=== PATIENT | female | born 1955 | race Two or more races ===

== ENCOUNTER 2017-03-06 07:13 | Outpatient (CLI) | payer OTHER ==
[2017-03-06] MEDS ORDERED: GADOBUTROL 10 ML VIAL IVP ONE (07:43)
[2017-03-06] MEDS ORDERED: FLUMAZENIL 0.5 MG/5 ML MDV IVP ONE (08:28)
[2017-03-06] MEDS ORDERED: fentaNYL 100 MCG/2 ML INJ ONE (08:29)
[2017-03-06] MEDS ORDERED: MIDAZOLAM 2 MG/2 ML VIAL ONE (08:29)
[2017-03-06] MEDS ORDERED: ONDANSETRON 4 MG/2 ML VIAL ONE (08:29)
[2017-03-06] MEDS ORDERED: NALOXONE HCL 0.4 MG/ML INJ ONE (08:29)
[2017-03-06] MEDS ORDERED: NS 1,000 ML IV SCH (08:45)
== END 2017-03-06 11:30 | disposition home or self-care (01) ==
LOC: FIMAGING 07:13
PROVIDERS: ATTEND Physician Assistant Surgical
DX: G20 Parkinson's disease (principal)
CPT/HCPCS: A9585; J2250; J2310; J2405; J3010

== ENCOUNTER 2017-03-12 05:46 | Inpatient (IN) | payer OTHER ==
--- NOTE | 2017-03-07 17:21 | GHP ---
[f rep st] HISTORY AND PHYSICAL DATE OF ADMISSION: 03/12/2017 HISTORY OF PRESENT ILLNESS: The patient is a 61-year-old female with tremor- predominant Parkinson disease. She has a right greater than left-sided tremor, rigidity, and slowness. She sees Dr. Roberson for neurology. Her symptoms began in 2004 with tremor in the right hand. The tremor then progressed to the left. She has bradykinesia and rigidity. She states she occasionally freezes and experiences fenestration and balance disturbances. She has undergone on- off testing and has undergone a neuropsych evaluation that revealed mild cognitive deficits. She presents today to proceed with surgical intervention with deep brain stimulation. PAST MEDICAL HISTORY: Parkinson disease. PAST SURGICAL HISTORY: Denies. SOCIAL HISTORY: Patient denies tobacco and alcohol use. FAMILY HISTORY: Noncontributory. REVIEW OF SYSTEMS: Patient denies chest pain, shortness of breath, abdominal pain, nausea, vomiting, fevers, or chills. Admits to tremors and bradykinesia. Admits to speech difficulties. ALLERGIES: No known drug allergies. CURRENT MEDICATIONS: Vitamin B6, carbidopa-levodopa. PHYSICAL EXAM: GENERAL: Patient was seen and examined. There appears to be no apparent distress. Mood and affect are appropriate, alert and oriented. VITAL SIGNS: Stable. NEUROLOGIC: Extraocular movements are intact. Facial expression is symmetrical. Tongue is midline with protrusion. Hearing is grossly intact. Speech is without dysarthria. Muscle strength is well preserved in upper and lower extremities with 5/5 and sensation is intact to light touch. ASSESSMENT AND PLAN: In summary, the patient is a 61-year-old female with Parkinson disease. She has been elected an excellent candidate for deep brain stimulation. She has undergone on-off testing with a decrease in new PDR score from 65 to 50. We would typically like to see a 30% drop. However, she is tremor predominant and refractory. She has also completed a neuropsychiatric evaluation. We recommend proceeding with bilateral deep brain stimulator lead placement in a staged fashion. The risks, benefits, and procedure were discussed in detail with the patient. The patient has elected and proceeded to move forward with surgery. Consents were signed and all questions and concerns were addressed and answered. We will first proceed with implant of left deep brain stimulator lead to the STN followed by right deep brain stimulator lead placement 1 month later. /[id number]/MODL MTDD
[2017-03-12] MEDS ORDERED: CEFUROXIME 1,500 MG in NS 50 ML IV ONE (06:00)
[2017-03-12] MEDS ORDERED: LIDOCAINE 1% 2 ML INJ ID PRN (06:27)
[2017-03-12] MEDS ORDERED: LR 1,000 ML IV ONE (06:27)
[2017-03-12] MEDS ORDERED: LIDOCAINE 1% 2 ML INJ ONE (06:34)
--- NOTE | 2017-03-12 06:55 | PDHPUP ---
History & Physical Update H&P update statement: This history and physical update is based on an assessment of the patient which was completed after admission or registration (within 24 hours), but prior to the surgery/procedure. H&P update: H&P reviewed & patient examined, no change in patient's condition since H&P completed
[2017-03-12 06:56] LABS: % IMMATURE GRANULYOCYTES 0.2 % (0.0-1.1); ABSOLUTE IMMATURE GRANULOCYTES 0.01 10^3/uL (0.00-0.10); ADD DIFF? NO; ADD MORPH? NO; ADD SCAN? NO; ATYPICAL LYMPHOCYTE FLAG 0 (0-99); FRAGMENT RBC FLAG 0 (0-99); HEMATOCRIT 41.2 % (38.0-47.0); HEMOGLOBIN 13.8 g/dL (12.6-16.3); LEFT SHIFT FLG 10 (0-99); LIPEMIA HEMOLYSIS FLAG 80 (0-99); MEAN CELL HEMOGLOBIN 31.4 pg (27.9-34.1); MEAN CELL HEMOGLOBIN CONCENTR. 33.5 g/dL (32.4-36.7); MEAN CELL VOLUME 93.8 fL (81.5-99.8); PLATELET CLUMPS FLAG 0 (0-99); PLATELET COUNT 174 10^3/uL (150-400); RED BLOOD CELL COUNT 4.39 10^6/uL (4.18-5.33); RED CELL DISTRIBUTION WIDTH 12.4 % (11.5-15.2)
[2017-03-12] MEDS ORDERED: THROMBIN (BOVINE) 20,000 UNIT VIAL TP ONE (06:56)
[2017-03-12] MEDS ORDERED: GENTAMICIN SULFATE 80 MG/2 ML VIAL ONE (06:56)
[2017-03-12] MEDS ORDERED: BUPIVACAINE/EPI 0.5% 30 ML SDV ONE ×2 (06:56→07:44)
[2017-03-12] MEDS ORDERED: POVIDONE-IODINE 30 GM OINTTUBE TP ONE (06:57)
--- NOTE | 2017-03-12 07:00 | PDANEPAE ---
ANE History of Present Illness 61 year old female with Parkinsons presents for DBS electrode placement. ANE Past Medical History - Cardiovascular History Hx Hypertension: No Hx Arrhythmias: No Hx Chest Pain: No Hx Coronary Artery / Peripheral Vascular Disease: No Hx CHF / Valvular Disease: No Hx Palpitations: No - Pulmonary History Hx COPD: No Hx Asthma/Reactive Airway Disease: No Hx Recent Upper Respiratory Infection: No Hx Oxygen in Use at Home: No Hx Sleep Apnea: No Sleep Apnea Screening Result - Last Documented: Negative - Neurologic History Hx Cerebrovascular Accident: No Hx Seizures: No Hx Dementia: No Neurologic History Comment: Parkinson's - Endocrine History Hx Diabetes: No Hypothyroid: Yes Hyperthyroid: No Obesity: no Endocrine History Comment: Hypothyroid - Renal History Hx Renal Disorders: No - Liver History Hx Hepatic Disorders: No - Neurological & Psychiatric Hx Hx Neurological and Psychiatric Disorders: Yes Neurological / Psychiatric History Comment: Parkinson's disease - Cancer History Hx Cancer: No - Congenital Disorder History Hx Congenital Disorders: No - GI History GERD: no Hx Gastrointestinal Disorders: No - Chronic Pain History Chronic Pain: No - Surgical History Prior Surgeries: None ANE Review of Systems Review of Systems: - Exercise capacity Exercise capacity: >=4 METS METS (RN): 4 METS ANE Patient History - Allergies Allergies/Adverse Reactions: No Known Allergies Allergy (Unverified 02/06/17 11:54) - Home Medications Home medications: home medication list seen and reviewed Home Medications: Ascorbic Acid [Vitamin C 500 mg (*)] 500 mg PO DAILY 02/06/17 [Last Taken 2 Weeks Ago ~02/26/17] Carbidopa/Levo Cr 50/200Mg [SINEMET CR 50/200 MG (*)] 1 tab PO BID@ [Last Taken 03/11/17 20:00] Carbidopa/Levodopa 25/100Mg [Sinemet 25/100 MG (*)] 1 tab PO TID@,, [Last Taken 03/11/17 18:00] Cholecalciferol Vit D3 [Vitamin D3 2000 units tab (OTC)] 2,000 units PO DAILY [Last Taken 2 Weeks Ago ~02/26/17] Levothyroxine [Synthroid 88 mcg (*)] 88 mcg PO DAILY06 02/06/17 [Last Taken 06:00] RX: Herbals/Supplements -Info Only 1 ea PO DAILY 02/06/17 [Last Taken 2 Weeks Ago ~02/26/17] Vitamin B Complex [B Complex] 1 each PO DAILY 02/06/17 [Last Taken 2 Weeks Ago ~ 02/26/17] - NPO status NPO Status: no food or drink >8 hours NPO Since - Liquids (Date): 03/11/17 NPO Since - Liquids (Time): 22:30 NPO Since - Solids (Date): 03/11/17 NPO Since - Solids (Time): 20:30 - Anes Hx Anes Hx: no prior problems - Smoking Hx Smoking Status: Never smoked Marijuana use: No - Alcohol Use Alcohol Use: None - Family Anes Hx Family Anes Hx: neg - N/A Family Hx Anesthesia Complications: None ANE Labs/Vital Signs - Labs Result Diagrams: 03/12/17 06:00 03/12/17 06:00 - Vital Signs Blood Pressure: 145/68 Heart Rate: 78 Respiratory Rate: 20 O2 Sat (%): 95 Height: 152.4 cm Weight: 63.503 kg ANE Physical Exam - Airway Neck exam: FROM Mallampati Score: Class 3 - Pulmonary Pulmonary: no respiratory distress - Cardiovascular Cardiovascular: regular rate and rhythym - ASA Status ASA Status: III
[2017-03-12] MEDS ORDERED: PROPOFOL/EMULSION 500 MG/50 ML BOTTLE IV ONE (07:05)
[2017-03-12 07:10] LABS: INR 1.05 (0.83-1.16); PROTIME(PATIENT) 13.6 SEC (12.0-15.0)
[2017-03-12 07:11] LABS: APTT 27.6 SEC (23.0-38.0)
[2017-03-12] MEDS ORDERED: hydrALAZINE 20 MG/ML VIAL ONE (07:11)
[2017-03-12] MEDS ORDERED: DEXAMETHASONE 4 MG/ML VIAL ONE (07:11)
[2017-03-12] MEDS ORDERED: LIDOCAINE 2% 5 ML SDV ONE (07:11)
[2017-03-12 07:12] LABS: ANION GAP 10 mEq/L (8-16); CARBON DIOXIDE 27 mEq/l (22-31); CHLORIDE 104 mEq/L (97-110); POTASSIUM 3.7 mEq/L (3.5-5.2); SODIUM 141 mEq/L (134-144)
[2017-03-12] MEDS ORDERED: DEXMEDETOMIDINE HCL 400 MCG in NS 100 ML IV ONE (07:30)
[2017-03-12] MEDS ORDERED: CHLORHEXIDINE GLUC HIBICLENS 118 ML BTL TP ONE (07:41)
[2017-03-12] MEDS ORDERED: PROPOFOL 200 MG/20 ML VIAL ONE (07:45)
[2017-03-12] MEDS ORDERED: LIDOCAINE 1% 300 MG/30 ML SDV ONE (07:46)
[2017-03-12] MEDS ORDERED: LR 500 ML IV PRN (09:44)
[2017-03-12] MEDS ORDERED: NALOXONE HCL 0.4 MG/ML INJ IVP PRN (09:44)
[2017-03-12] MEDS ORDERED: ONDANSETRON 4 MG/2 ML VIAL IVP PRN (09:44)
[2017-03-12] MEDS ORDERED: fentaNYL 100 MCG/2 ML INJ IVP PRN (09:44)
[2017-03-12] MEDS ORDERED: epHEDrine SULFATE 10 MG/ML SYR ONE (10:40)
[2017-03-12] MEDS ORDERED: ONDANSETRON 4 MG/2 ML VIAL ONE (10:40)
[2017-03-12] MEDS ORDERED: hydrALAZINE 20 MG/ML VIAL IVP PRN ×2 (10:58→11:11)
[2017-03-12] MEDS ORDERED: POLYETHYLENE GLYCOL 3350 17 GM PKT PO PRN (11:07)
[2017-03-12] MEDS ORDERED: LACTULOSE 20 GM/30 ML UDCUP PO PRN (11:07)
[2017-03-12] MEDS ORDERED: HYDROCODONE/APAP 10/325 TAB PO PRN (11:07)
[2017-03-12] MEDS ORDERED: MAGNESIUM HYDROXIDE 30 ML UDCUP PO PRN (11:07)
[2017-03-12] MEDS ORDERED: BISACODYL 10 MG SUPP PR PRN (11:07)
--- NOTE | 2017-03-12 11:07 | GOP ---
[f rep st] OPERATIVE REPORT DATE OF OPERATION: 03/12/2017 SURGEON: Caitlyn Jones DO NEUROSURGEON: Caitlyn Jones DO. AUTOMOBILE DESIGNER: None. PREOPERATIVE DIAGNOSIS: Parkinson disease. POSTOPERATIVE DIAGNOSIS: Parkinson disease. PROCEDURE PERFORMED: 1. Left deep brain stimulator lead placement with Medtronic [id number] lead to the left subthalamic nucleu s. 2. Stealth stereotaxis. 3. Impedances. FINDINGS: SPECIMENS: None. ESTIMATED BLOOD LOSS: 30 mL. INDICATIONS: This is a 61-year-old female with idiopathic Parkinson disease, who was evaluated by a multidisciplinary team and found to be a good candidate for staged bilateral STN DBS. She was identi fied and consented, sites were marked, and was brought to the operating room. Anesthetized under loc al. Hair was clipped with the OR clippers. Head was cleansed with ChloraPrep, and the Stealth stere otactic frame sites were anesthetized with 0.5% Marcaine with 1% lidocaine mixed. The pins had povid one iodine ointment, and the stereotactic frame was placed. A stereotactic spin with the O-arm 2 was performed and merged with the preoperative plan in the Stealth frame linked software. The AC/PC dis tance was 24.37, the axis is -11.22, Y of -1.79, Z of -5.05. Entry was an X of -41.77, Y of 32.31, a nd Z of 65.25. This corresponded to 23.5 degrees off midsagittal and 64.1 degrees off midaxial. Thi s corresponded to [place] frame coordinates of an X of 110, a Y of 102.5, a Z of 117, a ring of 75.5 degrees, and an arc of 109.4 degrees. She was prepped and draped in the usual sterile fashion. These [place] coordinates were all set and triple-checked by all providers in the room. Incision site was marked using the frame coordinates an d the cannula. A Half-arroyo incision was anesthetized with 0.5% Marcaine mixed with 1% lidocaine in a 50/50 mixture. A 10 blade was used to create an incision. Periosteum was elevated with periosteal elevator, and Jovan clips were placed. The bone incision was marked using a cannula. A corporate pilot hole w as drilled, and then a 14 mm bur hole was drilled. The dura was coagulated. The bone edges were wax ed. The Stimloc device was placed and locked down with 5 mm screws. The clipping mechanism verified the clip had been locked. The dura was opened with an 11 blade, and then we introduced the cannula and stylet, locked them into place, and plugged the hole with Gelfoam and DuraSeal. Removed the inte rnal stylette, placed a microelectrode, and connected. Performed microelectrode recordings. Please refer to Rani Fabian's dictation for all STACEY. However, we got approximately 6.5 mm of STN. Macr o stimulation was excellent with tremor cessation at the middle of the lead, 3 above target, with com plete cessation of tremor at 2 volts with no side effects. We elected to leave the lead here with th e bottom of the bottom contact at target. The lead was measured and marked. The target was selected and driven to. The microelectrode was removed. The lead was placed and we tested all 4 contacts. We had excellent control, low-to-no side effects through every single contact. Elected to leave the lead here. Took an x-ray with Garth sites, then removed the Gel-Foam and Dura Seal. Copiously irrigat ed. Retracted the cannula, placed the clipping mechanism, clipped and locked, verified the mechanism had locked, marked the lead, brought the stylet out of the lead, brought the lead down and out, and placed it into the groove. Placed the Stimloc cap over the lead. Took another x-ray and verified it had not migrated. Placed the boot over the lead, placed extension over the lead, protecting each co ntact. Used the torque wrench to lock it down and placed the boot over the lead extension complex, a nd tied into position with 2-0 silk ties at 2 positions. Tunneled posteriorly with periosteal elevat or. Anesthetized the stab incision with 0.5% Marcaine with epinephrine. Tunneled posterior to anter ior, brought the lead extension down and out, cutting it at the skin. Coiled the lead posterior and around the incision. Copiously irrigated with over a liter of gentamicin-infused saline. Closed the galea with 2-0 Vicryl pop-offs. Skin was closed with 3-0 running nylon. Frame was removed. Xerofo rm and Telfa were stapled down. Head frame was placed. The stereotactic spin that was performed aft er lead placement showed remarkable accuracy with zero deviation to plan. Patient tolerated procedur e well, no complications. DESCRIPTION OF PROCEDURE: STACEY: Rani Fabian PA-C. Please refer to her dictation for all STACEY data. FLUIDS: 1 L. URINE OUTPUT: 50 mL. DRAINS: None. COMPLICATIONS: None. /[id number]/MODL
--- NOTE | 2017-03-12 11:14 | POSTOPPROG ---
Post Op Note Date of Operation: 03/12/17 Surgeon: Caitlyn Jones Account Management Specialist: Rani Fabian PA-C Anesthesiologist: Juan Jose Hughes Anesthesia: IV Sedation Pre-op Diagnosis: Parkinson's Post-op Diagnosis: Parkinson's Procedure: Left STN DBS lead placement Inf/Abcess present in the surg proc area at time of surgery?: No Depth: Deep Incisional (Fascial) EBL: Minimal Plan Plan: 61 yo female s/p left STN DBS lead placement - neuro checks - postop head CT pending - maintain SBP < 140 - pain control - PT/OT - likely dc home tomorrow Exam Awake. Alert. PERRL. EOMI Following commands Strength full
[2017-03-12] MEDS: CARBIDOPA/LEVODOPA 25 MG/100 MG TAB PO SCH ×3 (11:22→17:15)
--- NOTE | 2017-03-12 12:02 | GPN ---
[f rep st] PROCEDURE NOTE DATE OF PROCEDURE: 03/12/2017 PREOPERATIVE DIAGNOSIS: Parkinson's disease. POSTOPERATIVE DIAGNOSIS: Parkinson's disease. PROCEDURE PERFORMED: Intraoperative functional subcortical mapping by microelectrode recording and s timulation. COMPLICATIONS: None. INDICATIONS FOR PROCEDURE: Determination of optimal electrode lead placement for deep brain stimulat ion therapy for Parkinson's disease to the STN. PROCEDURE: Following the incision, a fran hole was drilled on the left side. The arc was then arran ged with the following coordinates of X 110, Y 102.5, Z 117, ring 75.5, arc 109.4. The recording mark roelectrode was then slowly advanced into the brain using a central track. Cell bursts were noted ab ove target. There was evidence of entering STN at 6.5 above target and a tremor cell at 6.0 above ta rget. There was change in recordings with passive range of motion with elbow extension and shoulder at 5.0 above target. We exited STN at 0.3 below target. We then proceeded with macro stimulation due to the excellent microelectrode recordings that we obtai nelson. With macro stimulation, there was tremor improvement at 2.0 and no side effects up to 4.0. We then elected to place the lead with the bottom of the lead at target. With test stimulation at 0- , the patient had resolution of her tremor at 2.0 and transient tingling in her right hand at 3.5. A t 1-, the patient had improved bradykinesia and tremor at 2.5. No side effects up to 3.5. At 2-, th e patient had tremor improvement with no side effects up to 3.5. At 3-, the patient had tremor impro vement with no side effects up to 3.5. We elected to leave the lead at this location with the bottom of the lead at target due to the record ings we obtained as well as the test stimulation. The patient tolerated the surgery well without com plication. /[id number]/MODL
--- NOTE | 2017-03-12 12:32 | POSTANESTH ---
Post Anesthetic Evaluation Cardiovascular Status: Normal, Stable, Similar to Pre-Op Cond Respiratory Status: Normal, Stable, Similar to Pre-op Cond. Level of Consciousness/Mental Status: Can Participate in Eval, Alert and Oriented Pain Control: Adequate, Prn Tx Ordered Nausea/Vomiting Control: Adequate, Prn Tx Ordered Complications Possibly Related to Anesthesia: None Noted
[2017-03-12] MEDS: ACETAMINOPHEN 325 MG TAB PO PRN ×2 (13:23→17:51)
[2017-03-12] MEDS: NS W/ 20 KCl/L 1,000 ML IV SCH ×2 (13:32→22:03)
[2017-03-12] MEDS ORDERED: ONDANSETRON DISINTEGRATING 4 MG TAB PO PRN (15:33)
[2017-03-12] MEDS: traMADol 50 MG TAB PO PRN ×2 (15:50→22:02)
[2017-03-12] MEDS: CEFUROXIME 1,500 MG in NS 50 ML IV SCH ×2 (15:51→23:53)
[2017-03-12] MEDS: CARBIDOPA/LEVO CR 50 MG/200 MG TAB PO SCH (20:25)
[2017-03-12] MEDS: SENNOSIDES/DOCUSATE SODIUM TAB PO SCH (21:42)
[2017-03-13] MEDS: ONDANSETRON 4 MG/2 ML VIAL IVP PRN ×2 (02:07→08:58)
[2017-03-13] MEDS: ACETAMINOPHEN 325 MG TAB PO PRN ×3 (02:33→18:23)
[2017-03-13] MEDS: LEVOTHYROXINE 88 MCG TAB PO SCH (05:09)
--- NOTE | 2017-03-13 07:19 | NEUSURGPN ---
Assessment/Plan: 61 yo female s/p left STN DBS lead placement POD#1 - neuro checks - postop head CT stable - maintain SBP < 140 - pain control - antiemetics PRN - dressing changed this AM - PT/OT - likely dc home today pending clinical course - D/w Dr Jones - Call NS with any questions or concerns Subjective: Pt resting in bed, c/o vomiting yesterday. Slept well overnight. Objective: AAOx3 NAD VSS Pupils equal MAEx4 Incision cdi sutures intact, new headwrap placed +LT Urinary Catheter in Place: No - Physician Discussed Patient with : Karen Neurosurgery Physical Exam - Vitals, I&O, Labs I and O 03/12/17 03/13/17 03/14/17 05:59 05:59 05:59 Intake Total 2790 Output Total 880 Balance 1910 Weight 63.503 kg Intake: Oral (ml) 740 IV Intake (ml) 1000 IV Infused (ml) 1050 Cefuroxime 1,500 mg In Ns 50 50 ml @ 200 mls/hr IV Q8H CAR Rx#:[id number] NS W/ 20 KCl/L 1,000 ml @ 1000 100 mls/hr IV CONT CAR Rx#:[id number] Output: Urine (ml) 850 Catheter 50 Toilet 800 Estimated Blood Loss (ml) 30 Other: Intake Quantity Yes Sufficient Number of Voids Toilet 1 2 Vital Signs Temp Pulse Resp BP Pulse Ox 36.6 C 68 16 125/76 H 90 L 03/13/17 04:00 03/13/17 04:00 03/13/17 04:00 03/13/17 04:00 03/13/17 04:00 Laboratory Results 03/12/17 06:00 03/12/17 06:00 ICD10 Worksheet Patient Problems: Problems Problem Status Onset Parkinson disease Acute - ICD10 Problem Qualifiers (1) Parkinson disease
[2017-03-13] MEDS: SENNOSIDES/DOCUSATE SODIUM TAB PO SCH ×2 (09:40→20:41)
[2017-03-13] MEDS: CARBIDOPA/LEVO CR 50 MG/200 MG TAB PO SCH ×2 (10:36→20:41)
[2017-03-13] MEDS: CARBIDOPA/LEVODOPA 25 MG/100 MG TAB PO SCH ×3 (12:50→18:18)
--- NOTE | 2017-03-13 15:34 | ASMTCMCOM ---
CM Note CM Note Notes: Met with pt to discuss DC needs. Pt stated she has no needs at DC. She will be staying with her dtr while pt's recovers from an infection. Date Signed: 03/13/2017 03:33 PM Electronically Signed By:Soila Brown LCSW
[2017-03-13] MEDS ORDERED: PROMETHAZINE HCL 25 MG/ML INJ IVP PRN (16:33)
[2017-03-13] MEDS ORDERED: NS W/ 20 KCl/L 1,000 ML IV SCH (16:45)
[2017-03-13] MEDS: NS W/ 20 KCl/L 1,000 ML IV SCH (20:47)
[2017-03-14] MEDS: LEVOTHYROXINE 88 MCG TAB PO SCH (05:15)
[2017-03-14 07:25] VITALS: BP 146/77; PULSE 74; RESP 16; TEMP 99.7; O2SAT 93
[2017-03-14] MEDS: SENNOSIDES/DOCUSATE SODIUM TAB PO SCH (08:31)
[2017-03-14] MEDS: CARBIDOPA/LEVO CR 50 MG/200 MG TAB PO SCH (08:31)
--- NOTE | 2017-03-14 08:46 | NEUSURGPN ---
Date of Surgery: 03/12/17 Post Op Day: 2 Assessment/Plan: 61 yo female s/p left DBS lead placement to the STN for PD - neuro stable - pain controlled - nausea improved - PT/OT - plan for home today Discussed with Dr. Jones. Subjective: Nausea improved this morning. Mild headache. Notices improvement in her chin and hand tremor. Objective: Awake. Alert. PERRL. EOMI Following commands Strength full at 5/5 Incision with dressing c/d/i - Physician Discussed Patient with : Karen Neurosurgery Physical Exam - Vitals, I&O, Labs I and O 03/13/17 03/14/17 03/15/17 05:59 05:59 05:59 Intake Total 2790 1350 Output Total 880 1650 Balance 1910 -300 Weight 63.503 kg Intake: Oral (ml) 740 1150 IV Intake (ml) 1000 IV Infused (ml) 1050 200 Cefuroxime 1,500 mg In Ns 50 50 ml @ 200 mls/hr IV Q8H CAR Rx#:[id number] NS W/ 20 KCl/L 1,000 ml @ 1000 200 100 mls/hr IV CONT CAR Rx#:[id number] Output: Urine (ml) 850 1150 Catheter 50 Toilet 800 1150 Estimated Blood Loss (ml) 30 Emesis (ml) 500 Other: Intake Quantity Yes Yes Sufficient Number of Voids Toilet 1 2 Number of Emesis 1 Occurrences Vital Signs Temp Pulse Resp BP Pulse Ox 37.6 C 74 16 146/77 H 93 03/14/17 07:25 03/14/17 07:25 03/14/17 07:25 03/14/17 07:25 03/14/17 07:25 Laboratory Results 03/12/17 06:00 03/12/17 06:00 ICD10 Worksheet Patient Problems: Problems Problem Status Onset Parkinson disease Acute
[2017-03-14] MEDS: CARBIDOPA/LEVODOPA 25 MG/100 MG TAB PO SCH (11:06)
--- NOTE | 2017-03-14 16:18 | ASDISCHSUM ---
Discharge Information Plan Status:Home with No Needs Medically Cleared to Leave: Discharge Date:03/14/2017 11:25 AM CM D/C Disposition:Home, Routine, Self-Care ADT D/C Disposition:Home, Routine, Self-Care Projected Discharge Date:03/14/2017 11:25 AM Transportation at D/C: Discharge Delay Reason: Follow-Up Date:03/14/2017 11:25 AM Discharge Slot: Final Diagnosis: Placement Information Patient Contact Information Contact Name:MARY Relationship:Daughter Address:[address] Home Phone: City:[facility] Phone: [facility]/Zip Code:[place] [address] Email: Financial Information Financial Class:HMO and PPO Plans Primary Plan Desc:[employer] Primary Plan Number:[id number] Secondary Plan Desc: Secondary Plan Number: Assessment Information [facility] CM Progress Note CM Note CM Note Notes: Met with pt to discuss DC needs. Pt stated she has no needs at DC. She will be staying with her dtr while pt's recovers from an infection. Date Signed: 03/13/2017 03:33 PM Electronically Signed By:Soila Brown LCSW [facility] CM Progress Note CM Note CM Note Notes: Pt medically stable for d/c, no CM d/c needs identified. Date Signed: 03/14/2017 04:17 PM Electronically Signed By:HUSSEIN Cisse Intervention Information
== END 2017-03-14 11:25 | disposition home or self-care (01) | DRG 27 ==
LOC: F3N 05:46
PROVIDERS: ADMIT Neurological Surgery; ATTEND Neurological Surgery
PROC: BW191ZZ Fluoroscopy of Head and Neck using Low Osmolar Contrast (ICD-10-PCS; 2017-03-12)
PROC: 00K03ZZ Map Brain, Percutaneous Approach (ICD-10-PCS; principal; 2017-03-12 07:15)
PROC: 4A10X4G Monitoring of Central Nervous Electrical Activity, Intraoperative, External Approach (ICD-10-PCS; principal; 2017-03-12 07:15)
PROC: 00H03MZ Insertion of Neurostimulator Lead into Brain, Percutaneous Approach (ICD-10-PCS; principal; 2017-03-12 07:15)
DX: G20 Parkinson's disease (principal); E03.9 Hypothyroidism, unspecified
CPT/HCPCS: 97116-GP; 97161-GP; 97166-GO; 97535-GO; C1713; J0360; J0697; J1100; J2405; J2550; J2704

== ENCOUNTER 2017-04-09 05:23 | Inpatient (IN) | payer OTHER ==
[2017-04-09] MEDS ORDERED: CEFUROXIME 1,500 MG in NS 50 ML IV ONE (06:00)
[2017-04-09] MEDS ORDERED: LR 1,000 ML IV ONE (06:19)
[2017-04-09] MEDS ORDERED: CHLORHEXIDINE GLUC HIBICLENS 118 ML BTL TP ONE (06:29)
[2017-04-09] MEDS ORDERED: BUPIVACAINE 0.25% 30 ML SDV ONE (06:29)
[2017-04-09] MEDS ORDERED: THROMBIN (BOVINE) 20,000 UNIT VIAL TP ONE (06:29)
[2017-04-09] MEDS ORDERED: LIDOCAINE 2% JELLY 20 ML (UROJECT) ONE (06:29)
[2017-04-09] MEDS ORDERED: GENTAMICIN SULFATE 80 MG/2 ML VIAL ONE (06:30)
[2017-04-09] MEDS ORDERED: fentaNYL 100 MCG/2 ML INJ ONE (06:40)
[2017-04-09] MEDS ORDERED: PROPOFOL/EMULSION 500 MG/50 ML BOTTLE IV ONE (06:40)
[2017-04-09] MEDS ORDERED: niCARdipine/NACL/200 ML BAG IV ONE (06:41)
[2017-04-09] MEDS ORDERED: DEXMEDETOMIDINE HCL 200 MCG/2 ML VIAL IV ONE (06:42)
--- NOTE | 2017-04-09 07:09 | PDANEPAE ---
ANE History of Present Illness parkinson disease ANE Past Medical History - Cardiovascular History Hx Hypertension: No Hx Arrhythmias: No Hx Chest Pain: No Hx Coronary Artery / Peripheral Vascular Disease: No Hx CHF / Valvular Disease: No Hx Palpitations: No - Pulmonary History Hx COPD: No Hx Asthma/Reactive Airway Disease: No Hx Recent Upper Respiratory Infection: No Hx Oxygen in Use at Home: No Hx Sleep Apnea: No Sleep Apnea Screening Result - Last Documented: Negative - Neurologic History Hx Cerebrovascular Accident: No Hx Seizures: No Hx Dementia: No Neurologic History Comment: Parkinson's - Endocrine History Hx Diabetes: No Hypothyroid: Yes Endocrine History Comment: Hypothyroid - Renal History Hx Renal Disorders: No - Liver History Hx Hepatic Disorders: No - Neurological & Psychiatric Hx Hx Neurological and Psychiatric Disorders: Yes Neurological / Psychiatric History Comment: Parkinson's disease - Cancer History Hx Cancer: No - Congenital Disorder History Hx Congenital Disorders: No - GI History Hx Gastrointestinal Disorders: No - Other Health History Other Health History: NONE - Chronic Pain History Chronic Pain: No - Surgical History Prior Surgeries: None ANE Review of Systems Review of Systems: - Exercise capacity METS (RN): 4 METS ANE Patient History - Allergies Allergies/Adverse Reactions: No Known Allergies Allergy (Unverified 02/06/17 11:54) - Home Medications Home Medications: RX: Carbidopa/Levo Cr 50/200Mg [SINEMET CR 50/200 MG (*)] 1 tab PO BID@ [Last Taken 03/11/17 20:00] RX: Carbidopa/Levodopa 25/100Mg [Sinemet 25/100 MG (*)] 1 tab PO BID@02/06 [Last Taken 03/11/17 18:00] RX: Levothyroxine [Synthroid 88 mcg (*)] 88 mcg PO DAILY06 02/06/17 [Last Taken 03/11/17 06:00] - NPO status NPO Since - Liquids (Date): 04/08/17 NPO Since - Liquids (Time): 20:00 NPO Since - Solids (Date): 04/08/17 NPO Since - Solids (Time): 20:00 - Smoking Hx Smoking Status: Never smoked - Family Anes Hx Family Hx Anesthesia Complications: None ANE Labs/Vital Signs - Vital Signs Blood Pressure: 150/86 Heart Rate: 79 Respiratory Rate: 14 O2 Sat (%): 95 Height: 152.4 cm Weight: 63.503 kg ANE Physical Exam - Airway Neck exam: FROM Mallampati Score: Class 2 Mouth exam: normal dental/mouth exam - Pulmonary Pulmonary: no respiratory distress - Cardiovascular Cardiovascular: regular rate and rhythym - ASA Status ASA Status: II ANE Anesthesia Plan Anesthesia Plan: MAC
[2017-04-09] MEDS ORDERED: VANCOMYCIN HCL/NORMAL SALINE 250 ML IV ONE ×2 (07:18→20:00)
[2017-04-09] MEDS ORDERED: PROMETHAZINE HCL 25 MG/ML INJ IVP PRN (09:23)
[2017-04-09] MEDS ORDERED: fentaNYL 100 MCG/2 ML INJ IVP PRN (09:23)
[2017-04-09] MEDS ORDERED: HYDROmorphONE/DILAUDID 1 MG/ML INJ IVP PRN (09:23)
[2017-04-09] MEDS ORDERED: NALOXONE HCL 0.4 MG/ML INJ IVP PRN (09:23)
[2017-04-09] MEDS ORDERED: ONDANSETRON 4 MG/2 ML VIAL IVP PRN ×2 (09:23→10:25)
[2017-04-09] MEDS ORDERED: BISACODYL 10 MG SUPP PR PRN (10:25)
[2017-04-09] MEDS ORDERED: MAGNESIUM HYDROXIDE 30 ML UDCUP PO PRN (10:25)
[2017-04-09] MEDS ORDERED: OXYCODONE/APAP 5/325 TAB PO PRN (10:25)
[2017-04-09] MEDS ORDERED: POLYETHYLENE GLYCOL 3350 17 GM PKT PO PRN (10:25)
[2017-04-09] MEDS ORDERED: LACTULOSE 20 GM/30 ML UDCUP PO PRN (10:25)
[2017-04-09] MEDS ORDERED: hydrALAZINE 20 MG/ML VIAL IVP PRN (10:28)
[2017-04-09] MEDS ORDERED: HYDROCODONE/APAP 5/325 TAB PO PRN (10:28)
[2017-04-09] MEDS ORDERED: VANCOMYCIN 1.5 GM in D5W 250 ML IV SCH (10:30)
[2017-04-09] MEDS ORDERED: NS W/ 20 KCl/L 1,000 ML IV SCH (10:30)
--- NOTE | 2017-04-09 10:30 | POSTANESTH ---
Post Anesthetic Evaluation Cardiovascular Status: Normal, Stable Respiratory Status: Normal, Stable Level of Consciousness/Mental Status: Can Participate in Eval Pain Control: Adequate, Prn Tx Ordered Nausea/Vomiting Control: Adequate, Prn Tx Ordered Complications Possibly Related to Anesthesia: None Noted
--- NOTE | 2017-04-09 10:33 | POSTOPPROG ---
Post Op Note Date of Operation: 04/09/17 Surgeon: Caitlyn Jones Textile Engineer: Rani Fabian PA-C Anesthesiologist: Dr. Wayne Anesthesia: IV Sedation Pre-op Diagnosis: Parkinson's Post-op Diagnosis: Parkinson's Procedure: Right STN DBS lead placement Inf/Abcess present in the surg proc area at time of surgery?: No Depth: Deep Incisional (Fascial) EBL: Minimal Plan Plan: 61 yo female s/p right STN DBS lead placement - neuro checks - pain control - postop CT head pending - maintain SBP < 140 - PT/OT - dispo: tomorrow if does well Exam Patient seen and examined in recovery. PERRL. EOMI Muscle strength full at 5/5 Sensation intact
--- NOTE | 2017-04-09 11:39 | GPN ---
[f rep st] PROCEDURE NOTE PREPROCEDURE DIAGNOSIS: Parkinson disease. POSTPROCEDURE DIAGNOSIS: Parkinson disease. PROCEDURE PERFORMED: Intraoperative functional subcortical mapping by microelectrode recording and s timulation. COMPLICATIONS: None. INDICATIONS FOR PROCEDURE: Determination of optimal electrode lead placement for deep brain stimulat ion therapy for Parkinson disease to STN. PROCEDURE: Following the incision, a fran hole was drilled on the right side. The arc was then arra nged with the following coordinates of X 91.5, Y 101, Z 118.5, ring 77, arc 65.3. The recording micr oelectrode was then slowly advanced into the brain using a central and lateral tract. Cell bursts we re noted above target on both tracts. There was evidence of entering STN on the lateral tract at 3.9 above target. There was change with recordings with elbow flexion at 3.0 above targets and at 2.0 a kandy target with elbow extension and flexion. We exited STN at 2.7 below target. With the central t ract, there was no evidence of entering STN and we entered SNR at 2.7 below target. With these micro electrode recordings at the lateral tract, we elected to proceed with macro stimulation. Patient had no side effects up to 4.0. We then elected to place the lead with the bottom of the lead at 2.7 below target using the lateral t rack. Patient did not have any tremor present for us to test this morning, and thus we tested for si de effects. At 0-, patient had transient tingling in her left hand starting at 2.5 through 3.5. No persistent tingling. At 1-, no side effects up to 3.5; 2-, no side effects up to 3.5; 3-, no side ef fects up to 3.5. We elected to leave the lead at this location with the bottom of the lead at 2.7 below target using t he lateral tract due to the recordings we obtained as well as the test stimulation. The patient hudson rated the surgery well without complications. /[id number]/MODL
--- NOTE | 2017-04-09 11:44 | GOP ---
[f rep st] OPERATIVE REPORT DATE OF OPERATION: 04/09/2017 SURGEON: Caitlyn Jones DO NEUROSURGEON: Caitlyn Jones DO CALL WORKER PERSON: DEE Posada PREOPERATIVE DIAGNOSIS: Parkinson disease. POSTOPERATIVE DIAGNOSIS: Parkinson disease. PROCEDURE PERFORMED: 1. Right deep brain stimulator lead placement to subthalamic nucleus. 2. Stealth stereotaxis. FINDINGS: SPECIMENS: None. ESTIMATED BLOOD LOSS: 15 mL. INDICATIONS: This is a 61-year-old female, who has a left-sided deep brain stimulator lead to the ST N nucleus. She had been previously evaluated by a multidisciplinary team, found to be a good silas te for bilateral deep brain stimulation to STN. She presents today for a second side lead. DESCRIPTION OF PROCEDURE: She was identified, consented. Sites were marked. Brought to the operati ng room. Anesthetized under local with MAC. Hair was clipped with the OR clippers. Head was cleans ed with ChloraPrep. The pin sites were anesthetized with 0.5% Marcaine with epinephrine, and using B etadine ointment on the pins, placed the stealth frame stereotactically. We then performed an O-arm 2 spin and registered to the preoperative plan. We mirrored the opposite side as she had excellent S TN placement, and the mirror once we did registration looked to be a bit lateral, so we planned based upon direct targeting for an X of 9.5, a Y of -1.59, a Z of -5.14, an entry point of an X of 41.62, a Y of 31.95, a Z of 65.4. This corresponded to 24.5 degrees off midsagittal, 64.6 degrees off midax ial. We elected to do 2 electrodes, 1 in the central and 1 in the original mirror, which was 2 mm la teral and the central frame coordinates were an X of 91.5, a Y of 101, a Z of 118.5, a ring of 77 deg marleny, an arc of 65.3 degrees. These were all set and triple checked by all providers in the room. Patient was prepped and draped in the usual sterile fashion. Incision was marked using [place] frame coordinates. Incision was anesthetized with 0.5% Marcaine with epinephrine. Half-arroyo incision was made and periosteal elevator was used to elevate the periosteum. Hemostasis was obtained with bipol ar cautery and Jovan clips. We marked the bone opening using [place] frame coordinates and cannula. Created a pilot submersible hole, then a 14 mm fran hole, waxed all fran hole edges, placed the Stimloc device, locked into place with 5 mm Synthes screws. Verified the clipping mechanism clipped and locked. Ope nelson the dura sharply with an 11 blade. Coagulated with an 11 blade. Gently inserted both cannulas a nd stylet, placed Gelfoam and DuraSeal, removed the stylet, placed a microelectrode, performed microe lectrode recording. Please refer to Rani Fabian for all microelectrode recording dictation; felix boyd, we got an excellent run of STN in that lateral tract with approximately 6 mm of STN with good le sional effect. No side effects. We elected to place the lead here and at approximately 2.7 below ta rget, which is the end of the STN and tested the lead at all 4 contacts. Good impedances were found at all 4 contacts and there were no side effects. She had such a significant lesional effect that we were unable to test for efficacy. We retracted the cannula, placed the clipping mechanism, clipped and locked it. Marked the lead, removed the stylet. Took an x-ray with site. Brought th e lead out, placed it into the groove, placed the cap on the Stimloc. Placed the boot over the lead. Performed a stereotactic spin verifying that we were in an appropriate position. Placed the boot o oliver the lead, placed the extension over the lead, protecting each contact. Used the torque wrench, l ocked into place. Brought the boot over the lead extension complex, tied in position with 2-0 silk t ies at 2 positions somewhat posteriorly with a periosteal elevator. Anesthetized the stab incision p osteriorly with 0.5% Marcaine with epinephrine. Tunneled posterior to anterior and brought the lead extension down and out. Coiled the lead around the incision, took a final x-ray, and all leads were in good position, had not migrated. Copiously irrigated with over a liter of gentamicin infused sali ne. Closed the galea with 2-0 Vicryl pop-offs. The skin was closed with 3-0 running nylon. The darius d was cut at the skin and nylon stitch was placed where the lead extension exited. The frame was rem lesa. Wound was dressed with Xeroform and Tegaderm. Head was wrapped, and the patient tolerated proc edure well. There were no complications. FLUIDS: 900 mL crystalloid. URINE OUTPUT: 125 mL. DRAINS: None. COMPLICATIONS: None. /[id number]/MODL
[2017-04-09] MEDS: CARBIDOPA/LEVODOPA 25 MG/100 MG TAB PO SCH ×2 (14:40→19:34)
[2017-04-09] MEDS: ACETAMINOPHEN 325 MG TAB PO PRN ×3 (16:20→23:23)
[2017-04-09] MEDS: CARBIDOPA/LEVO CR 50 MG/200 MG TAB PO SCH (19:34)
[2017-04-09] MEDS: SENNOSIDES/DOCUSATE SODIUM TAB PO SCH (22:28)
[2017-04-09 23:27] VITALS: RESP 16
[2017-04-10] MEDS: ACETAMINOPHEN 325 MG TAB PO PRN (04:52)
[2017-04-10] MEDS ORDERED: traMADol 50 MG TAB PO PRN (05:13)
[2017-04-10] MEDS ORDERED: LEVOTHYROXINE 88 MCG TAB PO SCH (06:00)
[2017-04-10 08:16] VITALS: BP 115/69; PULSE 73; TEMP 98.5; O2SAT 96
[2017-04-10] MEDS: CARBIDOPA/LEVO CR 50 MG/200 MG TAB PO SCH (08:39)
[2017-04-10] MEDS: SENNOSIDES/DOCUSATE SODIUM TAB PO SCH (09:07)
--- NOTE | 2017-04-10 09:14 | NEUSURGPN ---
Assessment/Plan: 61 yo female s/p right STN DBS lead placement - neuro checks - pain control - postop CT head stable - maintain SBP < 140 -Dressing changed - PT/OT - dispo: home today Subjective: Pt resting in bedside chair. Ate breakfast, no nausea, feeling good. Objective: AAOx3 NAD VSS MAEx4 Motor 5/5 BUE/BLE Incisions cdi sutures in place +LT tremor Urinary Catheter in Place: No - Physician Discussed Patient with Dr.: Karen Neurosurgery Physical Exam - Vitals, I&O, Labs I and O 04/09/17 04/10/17 04/11/17 05:59 05:59 05:59 Intake Total 2813 Output Total 285 Balance 2528 Weight 63.503 kg Intake: Oral (ml) 600 IV Intake (ml) 950 IV Infused (ml) 1263 NS W/ 20 KCl/L 1,000 ml @ 1013 100 mls/hr IV CONT CAR Rx#:[id number] Vancomycin HCl/Normal 250 Saline 250 ml @ 250 mls/ hr IV ONCE@2000 ONE Rx#: [id number] Output: Urine (ml) 275 Catheter 125 Toilet 150 Estimated Blood Loss (ml) 10 Other: Number of Voids Toilet 1 1 Vital Signs Temp Pulse Resp BP Pulse Ox 36.9 C 73 16 115/69 96 04/10/17 08:13 04/10/17 08:13 04/10/17 08:13 04/10/17 08:13 04/10/17 08:13 ICD10 Worksheet Patient Problems: Problems Problem Status Onset Parkinson disease Acute
--- NOTE | 2017-04-10 11:23 | ASMTCMCOM ---
CM Note CM Note Notes: 04/10/2017 Case Management Note Met w/pt. No case management d/c needs identified. Pt is and plans for to transport home when medically stable. Reports daughter is involved in cares as well. Pt works at [employer] and plans return to work as soon as possible. Pt able to drive short distances to and from work and to areas near her home. She reports minimal difficulties in grocery shopping and is able to prepare meals. Pt plans to explore outpatient PT based on recommendations provided by PT today. Case management d/c poc: Home independent with family support when medically stable. Date Signed: 04/10/2017 11:23 AM Electronically Signed By:Lesly Ford RN
--- NOTE | 2017-04-10 13:16 | ASDISCHSUM ---
Discharge Information Plan Status:Home with No Needs Medically Cleared to Leave: Discharge Date:04/10/2017 11:38 AM CM D/C Disposition:Home, Routine, Self-Care ADT D/C Disposition:Home, Routine, Self-Care Projected Discharge Date:04/10/2017 12:00 AM Transportation at D/C:Family Discharge Delay Reason: Follow-Up Date:04/10/2017 12:00 AM Discharge Slot: Final Diagnosis: Placement Information Patient Contact Information Contact Name:MARY Relationship:Daughter Address:[address] City:[facility] Phone: [facility] Code:[place] [address] Email: Financial Information Financial Class:HMO and PPO Plans Primary Plan Desc:[employer] Primary Plan Number:[id number] Secondary Plan Desc: Secondary Plan Number: Assessment Information [facility] CM Progress Note CM Note CM Note Notes: 04/10/2017 Case Management Note Met w/pt. No case management d/c needs identified. Pt is and plans for to transport home when medically stable. Reports daughter is involved in cares as well. Pt works at [employer] and plans return to work as soon as possible. Pt able to drive short distances to and from work and to areas near her home. She reports minimal difficulties in grocery shopping and is able to prepare meals. Pt plans to explore outpatient PT based on recommendations provided by PT today. Case management d/c poc: Home independent with family support when medically stable. Date Signed: 04/10/2017 11:23 AM Electronically Signed By:Lesly Ford RN Intervention Information
== END 2017-04-10 11:38 | disposition home or self-care (01) | DRG 27 ==
LOC: F3E 05:23 → F3N 11:39
PROVIDERS: ADMIT Neurological Surgery; ATTEND Neurological Surgery
DX: G20 Parkinson's disease (principal); Z96.89 Presence of other specified functional implants
CPT/HCPCS: 97161-GP; 97165-GO; C1713; J0171; J0697; J2704; J3010; J3370

== ENCOUNTER 2017-05-07 05:34 | Day surgery (SDC) | payer OTHER ==
[2017-05-07] MEDS ORDERED: ceFAZolin 2 GM/SWFI 2 GM/20 ML SYR IVP ONE (05:58)
[2017-05-07] MEDS ORDERED: LR 1,000 ML IV ONE (06:05)
[2017-05-07] MEDS ORDERED: LIDOCAINE 1% 2 ML INJ ID PRN (06:05)
[2017-05-07] MEDS ORDERED: GENTAMICIN SULFATE 80 MG/2 ML VIAL ONE (06:41)
[2017-05-07] MEDS ORDERED: BUPIVACAINE 0.25% 30 ML SDV ONE (06:41)
[2017-05-07] MEDS ORDERED: CHLORHEXIDINE GLUC HIBICLENS 118 ML BTL TP ONE (06:42)
[2017-05-07] MEDS ORDERED: MIDAZOLAM 2 MG/2 ML VIAL IVP ONE (07:02)
--- NOTE | 2017-05-07 07:02 | PDANEPAE ---
ANE History of Present Illness h/o DBS presents for stage II generator ANE Past Medical History - Cardiovascular History Hx Hypertension: No Hx Arrhythmias: No Hx Chest Pain: No Hx Coronary Artery / Peripheral Vascular Disease: No Hx CHF / Valvular Disease: No Hx Palpitations: No - Pulmonary History Hx COPD: No Hx Asthma/Reactive Airway Disease: No Hx Recent Upper Respiratory Infection: No Hx Oxygen in Use at Home: No Hx Sleep Apnea: No Sleep Apnea Screening Result - Last Documented: Negative - Neurologic History Hx Cerebrovascular Accident: No Hx Seizures: No Hx Dementia: No Neurologic History Comment: Parkinson's - Endocrine History Hx Diabetes: No Obesity: no Endocrine History Comment: Hypothyroid - Renal History Hx Renal Disorders: No - Liver History Hx Hepatic Disorders: No - Neurological & Psychiatric Hx Hx Neurological and Psychiatric Disorders: Yes Neurological / Psychiatric History Comment: Parkinson's disease - Cancer History Hx Cancer: No - Congenital Disorder History Hx Congenital Disorders: No - GI History Hx Gastrointestinal Disorders: No - Other Health History Other Health History: NONE - Chronic Pain History Chronic Pain: No - Surgical History Prior Surgeries: None ANE Review of Systems Review of systems is: negative Review of Systems: - Exercise capacity METS (RN): 4 METS ANE Patient History - Allergies Allergies/Adverse Reactions: No Known Allergies Allergy (Unverified 02/06/17 11:54) - Home Medications Home medications: home medication list seen and reviewed Home Medications: Carbidopa/Levo Cr 50/200Mg [SINEMET CR 50/200 MG (*)] 1 tab PO BID@, [Last Taken 05/06/17 14:00] Carbidopa/Levodopa 25/100Mg [Sinemet 25/100 MG (*)] 1 tab PO BID@02/06/17 [Last Taken 05/06/17 20:00] Levothyroxine [Synthroid 88 mcg (*)] 88 mcg PO DAILY06 02/06/17 [Last Taken ] - NPO status NPO Since - Liquids (Date): 05/06/17 NPO Since - Liquids (Time): 21:00 NPO Since - Solids (Date): 05/06/17 NPO Since - Solids (Time): 21:00 - Anes Hx Anes Hx: no prior problems - Smoking Hx Smoking Status: Never smoked - Family Anes Hx Family Hx Anesthesia Complications: None ANE Labs/Vital Signs - Vital Signs Blood Pressure: 141/92 Heart Rate: 73 Respiratory Rate: 20 O2 Sat (%): 94 Height: 152.4 cm Weight: 65.771 kg ANE Physical Exam - Airway Neck exam: FROM Mallampati Score: Class 2 Mouth exam: small mouth opening - Pulmonary Pulmonary: no respiratory distress - Cardiovascular Cardiovascular: regular rate and rhythym - ASA Status ASA Status: II ANE Anesthesia Plan Anesthesia Plan: GA w LMA
[2017-05-07] MEDS ORDERED: PROPOFOL 200 MG/20 ML VIAL ONE ×2 (07:05→07:28)
[2017-05-07] MEDS ORDERED: fentaNYL 100 MCG/2 ML INJ ONE ×3 (07:05→08:20)
[2017-05-07] MEDS ORDERED: LIDOCAINE 2% 5 ML SDV ONE (07:05)
[2017-05-07] MEDS ORDERED: DEXAMETHASONE 4 MG/ML VIAL ONE (07:09)
[2017-05-07] MEDS ORDERED: ONDANSETRON 4 MG/2 ML VIAL ONE ×2 (07:09→12:29)
[2017-05-07] MEDS ORDERED: LIDOCAINE 2% 100 MG/5 ML SYR ONE (07:09)
[2017-05-07] MEDS ORDERED: fentaNYL 100 MCG/2 ML INJ IVP PRN (08:41)
[2017-05-07] MEDS ORDERED: ALBUTEROL 3 ML DEYVIAL IH PRN (08:41)
[2017-05-07] MEDS ORDERED: ONDANSETRON 4 MG/2 ML VIAL IVP PRN (08:41)
[2017-05-07] MEDS ORDERED: NALOXONE HCL 0.4 MG/ML INJ IVP PRN (08:41)
[2017-05-07] MEDS ORDERED: OXYCODONE/APAP 5/325 TAB PO PRN (08:41)
[2017-05-07] MEDS ORDERED: ACETAMINOPHEN 500 MG TAB PO PRN (08:41)
[2017-05-07] MEDS ORDERED: NS 500 ML IV PRN (08:41)
[2017-05-07] MEDS ORDERED: traMADol 50 MG TAB PO PRN (09:00)
--- NOTE | 2017-05-07 09:10 | GOP ---
[f rep st] OPERATIVE REPORT DATE OF OPERATION: SURGEON: Caitlyn Jones DO ADMINISTRATIVE RESIDENT: Rani Fabian PA-C. PREOPERATIVE DIAGNOSIS: Parkinson disease. POSTOPERATIVE DIAGNOSIS: Parkinson disease. PROCEDURE PERFORMED: 1. Bilateral deep brain stimulator generator placement with Medtronic Activa SC. 2. Impedances x2. FINDINGS: SPECIMENS: None. ESTIMATED BLOOD LOSS: 20 mL. INDICATIONS: This is a 61-year-old female with Parkinson disease, who was found to be a good silas te for bilateral deep brain stimulation to the STN nucleus. She underwent STN stage leads and now co mes back for her generator placement. DESCRIPTION OF PROCEDURE: She was identified, consented, sites were marked. Brought to the operatin g room, anesthetized under general endotracheal anesthesia. Hair was clipped with the OR clippers. Incision sites were marked. She was prepped and draped in the usual sterile fashion. Incision at th e left clavicle was anesthetized with 0.5% Marcaine with epinephrine, and was made just lateral to le ad extension complex on the left, dissecting it out with Metzenbaum scissors, creating a pocket with Metzenbaum scissors in the galea. Then, incision was made at the chest wall with a 10 blade and hemo stasis was obtained with bipolar cautery. Created a subfascial pocket with blunt dissection and [place] enbaum scissors. We tunneled in a single pass from the head down to the chest over the clavicle, day nging the extension wire up and out. Brought the lead extension out, cut the Stay sutures and discar ded them. Retracted the boot, protecting each contact. Used the torque wrench to remove the extensi on and the boot. Discarded these. Placed a new boot. Gently dried the lead, placed it into the ext ension, protecting each contact. Locked it down with a torque wrench. Brought the boot over the darius d extension complex. Tied in position with 2-0 silk ties at 2 positions, brought it flat against the skull, placed the extension into the generator, locked into place with the torque wrench. Coiled th e wires posterior to the generator, and checked impedances. All impedances were good. Sutured the g enerator to the fascia with 2-0 silk stitch at 2 positions, copiously irrigated each incision with ov er a liter each of gentamicin infused saline. Closed the galea at the head with 2-0 Vicryl pop-offs and the skin with 3-0 running nylon at the chest wall. The fascia was closed with 2-0 Vicryl pop-off s, subcutaneous layer with 3-0 Vicryl pop-offs. The skin was closed with a 4-0 running Monocryl subc uticular stitch and Dermabond. Head was dressed with gauze and Medipore tape. Head was turned and s he was prepped and redraped on the opposite side. The procedure was repeated with anesthetizing the incision at the chest wall with 0.5% Marcaine with epinephrine. Incision was made just lateral to le ad extension complex with a 10 blade. Dissected out with Metzenbaum scissors. Created a pocket, and then made an incision at the chest wall with a 10 blade. Created a subfascial pocket with blunt dis section and Metzenbaum scissors. Hemostasis was obtained with bipolar cautery. We then tunneled fro m the head down to the chest wall with a single pass over the clavicle, bringing the extension up and out. Cut the lead extension sutures with a 15 blade. Discarded these. Retracted the boot, protect ing each contact. Used the torque wrench to remove the extension and the boot. Replaced a new boot gently. Dried the lead, placed it into the extension, locked it in place, protecting each contact wi th the torque wrench. Brought the boot over the lead extension complex, tied in position with 2-0 si lk ties at 2 positions, brought it flat against the skull. Coiled the wires posterior to the generat or, and placed it into the chest wall pocket. Checked impedances. All impedances were good. Suture d the generator of the fascia with 2-0 silk stitch at 2 positions. Copiously irrigated each incision with over a liter of gentamicin infused saline. Closed the head galea with 2-0 Vicryl pop-offs. Th e skin with 3-0 running nylon. At the chest, we closed the fascia with 2-0 Vicryl pop-offs, subcutan eous layer with 3-0 Vicryl pop-offs. The skin was closed with 4-0 running Monocryl subcuticular stit ch and Dermabond. Both head incisions were redressed with Xeroform gauze and Medipore tape, and a he ad wrap was placed. Patient tolerated procedure well. No complications. FLUIDS: 800 mL of crystalloid. URINE OUTPUT: None. DRAINS: None. COMPLICATIONS: None. /[id number]/MODL
[2017-05-07 09:22] VITALS: TEMP 96.8
[2017-05-07] MEDS ORDERED: HYDROmorphONE/DILAUDID 1 MG/ML INJ ONE (09:24)
[2017-05-07] MEDS: HYDROmorphONE/DILAUDID 1 MG/ML INJ IVP PRN ×2 (09:26→09:35)
[2017-05-07] MEDS ORDERED: traMADol 50 MG TAB ONE (09:52)
--- NOTE | 2017-05-07 09:53 | POSTOPPROG ---
Post Op Note Date of Operation: 05/07/17 Surgeon: Caitlyn Jones Soft Hat Binder: Jeanine Fabian PA-C Anesthesia: GET(General Endotracheal) Pre-op Diagnosis: Parkinson's disease Post-op Diagnosis: Parkinson's disease Procedure: Bilateral DBS generator implant Inf/Abcess present in the surg proc area at time of surgery?: No Depth: Deep Incisional (Fascial) EBL: Minimal Plan Plan: 61 yo female s/p bilateral DBS generator implant - neuro checks - pain control - advance diet as tolerated - dc home home today Exam Awake. Alert. PERRL. Muscle strength full at 5/5 Sensation intact Incisions c/d/i
[2017-05-07] MEDS ORDERED: ACETAMINOPHEN 500 MG TAB ONE (10:40)
[2017-05-07 11:12] VITALS: PULSE 73; RESP 14
[2017-05-07 14:27] VITALS: BP 139/80
[2017-05-07 14:32] VITALS: O2SAT 94
== END 2017-05-07 13:46 | disposition home or self-care (01) ==
LOC: FSGY 05:34
PROVIDERS: ATTEND Neurological Surgery
PROC: 0JH60DZ Insertion of Multiple Array Stimulator Generator into Chest Subcutaneous Tissue and Fascia, Open Approach (ICD-10-PCS; principal; 2017-05-07 07:15)
DX: G20 Parkinson's disease (principal)
CPT/HCPCS: C1767; C1787; C1883; J0171; J0690; J1100; J1170; J2001; J2250; J2405; J2704; J3010